=== PATIENT | female | born 1950 | race Caucasian/White ===

== ENCOUNTER 2024-05-08 11:52 | Day surgery (SDC) | payer OTHER ==
[~2024-05-08] VITALS: Ht 167.6 cm; Wt 97.0 kg
[~2024-05-08 11:52] MED LIST: CEFAZOLIN SODIUM 2 GM/20 ML SYR IV SCH; GABAPENTIN300 MG PO; IBLOOD GLUCOSE TEST STRIP 1 EA TEST VI PRN; IBUPROFEN400 MG PO; LACTATED RINGER'S 1,000 ML IV SCH; LIDOCAINE HCL 1% 5 ML SDV INJ ONE; LOSARTAN-HCTZ1 EAC2 PO; METFORMIN HCL500 MG PO; METOPROLOL SUCC25 MG PO; METRONIDAZOLE500 MG PO; MIDAZOLAM HCL 5 MG/5 ML VIAL IV PRN; MS CONTIN15 MG PO; MULTIPLE VITAM1 EACH PO; NORTRIPTYLINE H25 MG PO; OXYCODONE HCL5 M1 PO; PERCOCET 5-3251 EACH PO; REGLAN10 MG PO; fentaNYL citrate 100 MCG/2 ML VIAL IV PRN
[2024-05-08 12:09] VITALS: BP 136/69
[2024-05-08] MEDS ORDERED: fentaNYL citrate 100 MCG/2 ML VIAL ONE (12:45)
[2024-05-08] MEDS ORDERED: MIDAZOLAM HCL 5 MG/5 ML VIAL ONE (12:45)
[2024-05-08 14:48] VITALS: BP 129/62
--- NOTE | 2024-05-08 15:09 | NUR ---
05/08/24 1509 Xuan Shultz 1409 PT ARRIVED IN PACU AWAKE WITH NO C/O'S. ABD SOFT AND PASSING FLATUS. 1420 DR AT BEDSIDE. ALL QUESTIONS ANSWERED. 1440 SITTING UP IN BED SIPPING ON WATER. 1450 DC INSTRUCTIONS GIVEN. 1500 LEFT VIA W/C.
--- NOTE | 2024-05-10 12:25 | OR ---
[facility] [address], [place] [address] Signed DATE OF OPERATION: 05/08/2024 SURGEON: Angelica Dave MD PREOPERATIVE DIAGNOSES: History of radiation proctitis, status post pelvic radiation in conjunction with vaginal carcinoma treatment 2012. POSTOPERATIVE DIAGNOSES: 1. Diverticulosis of colon. 2. Sessile polyp x2. PROCEDURE: Total colonoscopy to cecum with snare polypectomy x2. ANESTHESIA: Intravenous sedation; fentanyl 100 mcg and Versed 8 mg. INDICATION: This 73-year-old white woman is a patient of Dr. Brown. She underwent colonoscopy by me in 2012 for rectal bleeding, and was found to have findings consistent with radiation proctitis. She does have family history of colon cancer. She has no prior history of polyp. Her colonoscopy in 2013 showed mild proctitis related to radiation therapy. Limited vaginoscopy was also undertaken. 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 She had vaginal carcinoma treated greater than 10 years ago. She is here now for surveillance colonoscopy having never had polyps in the past. The risk of bleeding, infection, and perforation related to colonoscopy was discussed. She understands and wished to proceed. FINDINGS: The prep was excellent. Complete colonoscopy was undertaken to the cecum with full intubation of the colon. There was no clear evidence of radiation proctitis. She did have diverticulosis extending from the sigmoid more proximally. Additionally, she had two 1 cm sessile polyps, one in the proximal rectum, the other in the mid sigmoid, both were excised with cold snare technique. DESCRIPTION OF PROCEDURE: The patient was brought to the endoscopy suite and placed in the lateral decubitus position, given intravenous sedation to the point of slurred speech and nystagmus. Digital rectal examination was normal. Electronically Signed By: ANGELICA DAVE MD 05/10/24 1225 PATIENT NAME: AVEL BROTHERS OPERATIVE REPORT DATE OF : 52 REPORT #: [id number] PHYSICIAN: ANGELICA DAVE MD PCP: HARPREET BROWN MD REPORT IS CONFIDENTIAL AND NOT TO BE RELEASED WITHOUT AUTHORIZATION [facility] [address], [place] [address] Signed An Olympus video colonoscope was passed in the rectum and manipulated throughout the colon noting diverticulosis throughout. Scope was ultimately passed into the cecum. Full intubation of the cecum was accomplished. The scope was then withdrawn and examination undertaken confirming diverticulosis. In the proximal sigmoid, there was a sessile polyp at least a cm in size, which was excised with cold snare technique. Further withdrawal showed another similar polyp, this one in the proximal rectum. Both were excised completely. Both were excised with cold snare technique. Retroflexed view in the rectum showed no clear evidence of active proctitis or other issue. She was taken to the recovery room in good condition. CONCLUDING DIAGNOSES: Polyps x2 and diverticulosis. PLAN: Recommend repeat colonoscopy in 5 to 7 years, sooner if symptoms should develop. She will return to the ongoing care of Dr. Brown. MD SINAI Arellano/MYRTLE /[id number] cc: Dr. Brown Copies: ~ Electronically Signed By: ANGELICA DAVE MD 05/10/24 1225 PATIENT NAME: AVEL BROTHERS OPERATIVE REPORT DATE OF : 52 REPORT #: [id number] PHYSICIAN: ANGELICA DAVE MD PCP: HARPREET BROWN MD REPORT IS CONFIDENTIAL AND NOT TO BE RELEASED WITHOUT AUTHORIZATION
== END 2024-05-08 15:00 | disposition home or self-care (01) ==
LOC: DS 11:52
PROVIDERS: ATTEND Surgery
PROC: 0DBN8ZZ Excision of Sigmoid Colon, Via Natural or Artificial Opening Endoscopic (ICD-10-PCS; 2024-05-08)
PROC: 0DBP8ZZ Excision of Rectum, Via Natural or Artificial Opening Endoscopic (ICD-10-PCS; principal; 2024-05-08 13:00)
DX: Z12.11 Encounter for screening for malignant neoplasm of colon (principal); D12.5 Benign neoplasm of sigmoid colon; D12.8 Benign neoplasm of rectum; K57.30 Diverticulosis of large intestine without perforation or abscess without bleeding; I10 Essential (primary) hypertension; E66.9 Obesity, unspecified; Z68.34 Body mass index [BMI] 34.0-34.9, adult; Z92.3 Personal history of irradiation; Z80.0 Family history of malignant neoplasm of digestive organs
CPT/HCPCS: 99153; G0500; J0690; J2250; J3010; J7121